=== PATIENT | female | born 2000 | race African-American/Black ===

== ENCOUNTER 2018-11-11 20:08 | Emergency (ER) | payer OTHER ==
[~2018-11-11] VITALS: Ht 175.3 cm; Wt 73.0 kg
[2018-11-11 22:29] VITALS: BP 114/76
== END 2018-11-11 22:29 | disposition home or self-care (01) ==
LOC: ER 20:08
DX: R21 Rash and other nonspecific skin eruption (principal); L40.9 Psoriasis, unspecified; Z98.890 Other specified postprocedural states
CPT/HCPCS: 99283